=== PATIENT | male | born 1995 | race Caucasian/White ===

== ENCOUNTER 2018-07-12 01:55 | Emergency (ER) | payer OTHER ==
--- NOTE | 2018-07-12 02:14 | EDPHY ---
H & P Stated Complaint: SLIPPED AND FELL HIT HEAD ON FLOOR, LACERATIONR EYEBROW Time Seen by Provider: 07/12/18 02:14 HPI/ROS: HPI CHIEF COMPLAINT: Slip and fall, head injury, head laceration HISTORY OF PRESENT ILLNESS: 22-year-old male, otherwise healthy no significant medical history presents emergency room after she slipped and fell hit the right side of his head on the ground. No LO C. Sustained a right forehead hematoma and right eyebrow laceration. The right eyebrow laceration 5 cm in horizontal length. Denies neck pain, chest pain or shortness of breath, denies any other areas of injury. Patient states tetanus shot up-to-date. Patient did have alcohol this evening. Multiple shots of vodka. Past Medical History: Denies medical history Past Surgical History: Right shoulder surgery Social History: Alcohol this evening. Family History: Noncontributory ROS REVIEW OF SYSTEMS: 10 Systems were reviewed and negative with the exception of the elements mentioned in the history of present illness. Exam Constitutional triage nursing summary reviewed, vital signs reviewed, awake/ alert. Eyes normal conjunctivae and sclera, EOMI, PERRLA. HENT head/neck: Right eyebrow hematoma with 5 cm horizontally oriented laceration. Otherwise neurovascular intact, moist mucus membranes, no epistaxis , neck supple/ no meningismus, no raccoon eyes. Respiratory clear to auscultation bilaterally, normal breath sounds, no respiratory distress, no wheezing. Cardiovascular rate normal, regular rhythm, no murmur, no edema, distal pulses normal. Gastrointestinal soft, non-tender, no rebound, no guarding, normal bowel sounds, no distension, no pulsatile mass. Genitourinary no CVA tenderness. Musculoskeletal no midline vertebral tenderness, full range of motion, no calf swelling, no tenderness of extremities, no meningismus, good pulses, neurovascularly intact. Skin pink, warm, & dry, no rash, skin atraumatic. Neurologic awake, alert and oriented x 3, AAOx3, moves all 4 extremities equally, motor intact, sensory intact, CN II-XII intact, normal cerebellar, normal vision, normal speech. Psychiatric normal mood/affect. Heme/Lymph/Immune no lymphadenopathy. Differential Diagnosis: Includes but is not limited to in a particular order right forehead hematoma, right forehead contusion, closed head injury, concussion, intracranial bleed, skull fracture, facial laceration Medical Decision Making: Plan for this patient CT scan head without contrast for trauma in the setting of acute alcohol intoxication. Patient need to CT scan to rule out intracranial bleed given alcohol, head injury, head laceration hematoma. Patient's laceration will need to be repaired and cleaned. Re-evaluation: CT scan head without contrast negative for acute traumatic injury no intracranial bleed or skull fracture. Called to me by Dr. Dial. Laceration Repair Procedure: Verbal Consent was obtained, Under sterile conditions, The patient had lidocaine with epinephrine used approximately 5ccs to local anesthetize the Right eyebrow 5CM Laceration. The wound was copiously irrigated with sterile fluid, the wound was explored for foreign bodies there were none visualized, the wound was explored with a sterile glove to the base. There are no deep structures involved, including no arterial injury. SEVEN 6.O PROLENE interrupted Sutures were placed in this patient's laceration. He had good close approximation of the wound edges. He Tolerated this well. Patient understands have sutures removed in 7 days. Patient understands keep wound clean, dry and intact. Watch for infection. Return precautions discussed with patient return if worsening headache, questions concerns about wound. Source: Patient - Personal History Current Tetanus/Diphtheria Vaccine: Yes Current Tetanus Diphtheria and Acellular Pertussis (TDAP): Yes - Medical/Surgical History Hx Asthma: No Hx Chronic Respiratory Disease: No Hx Diabetes: No Hx Cardiac Disease: No Hx Renal Disease: No Hx Cirrhosis: No Hx Alcoholism: No Hx HIV/AIDS: No Hx Splenectomy or Spleen Trauma: No Other PMH: SHOULDER SURGERY - Social History Smoking Status: Never smoked Constitutional: Initial Vital Signs Temperature (C) 37.0 C 07/12/18 02:02 Heart Rate 92 07/12/18 02:02 Respiratory Rate 18 07/12/18 02:02 Blood Pressure 122/71 H 07/12/18 02:02 O2 Sat (%) 96 07/12/18 02:02 O2 Delivery Mode Room Air Allergies/Adverse Reactions: No Known Allergies Allergy (Unverified 07/12/18 02:04) Home Medications: Medication Instructions Recorded NK [No Known Home Meds] 07/12/18 Departure - Departure Disposition: Home, Routine, Self-Care Clinical Impression: Laceration Condition: Good Instructions: Care For Your Stitches (ED), Laceration (ED), Concussion (ED), Head Injury (ED) Additional Instructions: 1. Sutures removed in 7 days. Return to the ER to have your sutures removed. 2. Watch for signs of infection. 3. Return if worse. Referrals: NONE *PRIMARY CARE P,. [Primary Care Provider] - As per Instructions Elis Kothari MD [Medical Doctor] - As per Instructions
[2018-07-12 04:00] VITALS: BP 114/62
== END 2018-07-12 04:00 | disposition home or self-care (01) ==
PROC: 08QNXZZ Repair Right Upper Eyelid, External Approach (ICD-10-PCS; principal; 2018-07-12)
DX: S01.111A Laceration without foreign body of right eyelid and periocular area, initial encounter (principal); W01.0XXA Fall on same level from slipping, tripping and stumbling without subsequent striking against object, initial encounter